=== PATIENT | female | born 1985 | race American Indian/Alaskan Native ===

== ENCOUNTER 2017-04-24 09:43 | Emergency (ER) | payer MEDICARE, MEDICAID, OTHER ==
[2017-04-24] MEDS ORDERED: Acetaminophen 500 MG Tab PO ONE (11:13)
--- NOTE | 2017-04-24 11:14 | EDM.PDOC ---
ED HPI GENERAL MEDICAL PROBLEM - General Chief Complaint: Lower Extremity Injury/Pain Stated Complaint: FELL AND INJURED LET LEG Time Seen by Provider: 04/24/17 11:12 Source of Information: Reports: Patient History Limitations: Reports: No Limitations - History of Present Illness INITIAL COMMENTS - FREE TEXT/NARRATIVE: Patient presents with left knee pain. She reports she tripped and fell at home, twisting her left knee. She reports pain with weight bearing. - Related Data Allergies Allergy/AdvReac Type Severity Reaction Status Date / Time codeine Allergy Airway Verified 04/24/17 11:04 Tightness indomethacin [From Indocin] Allergy Swelling Verified 04/24/17 11:04 indomethacin sodium Allergy Swelling Verified 04/24/17 11:04 [From Indocin] Penicillins Allergy Airway Verified 04/24/17 11:04 Tightness Sulfa (Sulfonamide Allergy Airway Verified 04/24/17 11:04 Antibiotics) Tightness Home Meds: Home Meds Albuterol Sulfate [Albuterol Sulfate HFA] PRN 08/07/13 [History] Past Medical History - Past Health History Medical/Surgical History: Denies Medical/Surgical History - Past Surgical History Musculoskeletal Surgical History: Reports: Other (See Below) Other Musculoskeletal Surgeries/Procedures:: left knee fracture Social & Family History - Tobacco Use Smoking Status *Q: Never Smoker Second Hand Smoke Exposure: No - Alcohol Use Days Per Week of Alcohol Use: 0 - Recreational Drug Use Recreational Drug Use: No Review of Systems - Review of Systems Review Of Systems: See Below Constitutional: Denies: Fever Respiratory: Reports: No Symptoms Cardiovascular: Reports: No Symptoms Musculoskeletal: Reports: Joint Pain, Joint Swelling, Muscle Pain, Muscle Stiffness, Other (Pain to left lateral knee with edema) Skin: Denies: Bruising, Rash, Erythema, Wound Neurological: Reports: No Symptoms Psychiatric: Reports: No Symptoms ED EXAM, GENERAL - Physical Exam Exam: See Below Exam Limited By: No Limitations General Appearance: Alert, WD/WN, Mild Distress Eye Exam: Bilateral Eye: EOMI, Normal Inspection, PERRL Ears: Normal External Exam Ear Exam: Left Ear: TM Perforation (small amount of yellow discharge, decreased hearing. ) Nose: Normal Inspection, Normal Mucosa, No Blood Throat/Mouth: Normal Inspection, Normal Lips, Normal Oropharynx, Normal Voice, No Airway Compromise Head: Atraumatic, Normocephalic Neck: Normal Inspection, Supple, Non-Tender, Full Range of Motion. No: Lymphadenopathy (R), Lymphadenopathy (L) Respiratory/Chest: No Respiratory Distress, Lungs Clear, Normal Breath Sounds, No Accessory Muscle Use, Chest Non-Tender Cardiovascular: Normal Peripheral Pulses, Regular Rate, Rhythm, No Edema, No Murmur, No Rub Peripheral Pulses: 2+: Radial (L), Radial (R), Dorsalis Pedis (L), Dorsalis Pedis (R) Back Exam: Normal Inspection, Full Range of Motion. No: CVA Tenderness (R), CVA Tenderness (L) Extremities: No Pedal Edema, Normal Capillary Refill, Other (Joint line tenderness left knee, Inability to squat or kneel, Palpable catching at the joint line as detected by the Rosanna maneuver, small effusion noted to lateral left knee. ) Neurological: Alert, Oriented, CN II-XII Intact, Normal Cognition, No Motor/ Sensory Deficits, Other (Gait favoring left knee, however this is due to recent fall. ) Psychiatric: Normal Affect, Normal Mood Skin Exam: Warm, Dry, Intact, Normal Color, No Rash Lymphatic: No Adenopathy Course - Vital Signs Last Recorded V/S: Last Vital Signs Temp 36.9 C 04/24/17 11:09 Pulse 71 04/24/17 11:09 Resp 14 04/24/17 11:09 BP 158/96 H 04/24/17 11:09 Pulse Ox 96 04/24/17 11:09 - Orders/Labs/Meds Orders: Active Orders 24 hr Category Date Time Status Knee 3V Lt [CR] Stat Exams 04/24/17 11:13 Taken Meds: Medications Discontinued Medications Generic Name Dose Route Start Last Admin Trade Name Bong PRN Reason Stop Dose Admin Acetaminophen 1,000 mg 04/24/17 11:13 04/24/17 11:18 Tylenol Extra Strength PO 04/24/17 11:14 1,000 mg ONETIME ONE Administration - Re-Assessments/Exams Free Text/Narrative Re-Assessment/Exam: 04/24/17 11:58 X-ray reviewed with patient, she most likely has 04/24/17 12:10 She will be treated for left knee injury, effusion with possible lateral meniscus tear. She will be fitted with a knee brace, bhavik wrap and crutches. Departure - Departure Time of Disposition: 12:11 Disposition: Home, Self-Care 01 Condition: Fair Clinical Impression: Left knee sprain, Otitis media of left ear, Acute otitis media of left ear with perforated tympanic membrane - Discharge Information Instructions: Knee Pain, Otitis Media, Adult, [id number], Knee Sprain, Easy- to-Read Referrals: PCP,None [Primary Care Provider] - Forms: ED Department Discharge Additional Instructions: You have suffered a left knee sprain with possible injury to your left meniscus. It is best for you to rest the left knee, bhavik wrap, ice and use brace with crutches as directed. Take acetaminophen as directed for pain. You may use tramadol 50mg tablet, one tablet twice per day for severe pain ( hard copy script written for #6), patient allergic to NSAIDs. Follow up with Dr. Anny Shannon this week for recheck. You also have a perforated left ear drum. Use ciprodex ear drops, 4 drops to left ear twice per day for 7 days. Establish care with a primary provider and have a recheck of your ear in 10 days. - My Orders Last 24 Hours: My Active Orders 04/24/17 11:13 Knee 3V Lt [CR] Stat - Assessment/Plan Last 24 Hours: My Active Orders 04/24/17 11:13 Knee 3V Lt [CR] Stat Assessment:: Left knee sprain Otitis media left Plan: Patient has suffered a left knee sprain with possible injury to your left meniscus. She also has left otitis media with perforated TM. It is best for her to rest the left knee, bhavik wrap, ice and use brace with crutches as directed. Take acetaminophen as directed for pain. She may use tramadol 50mg tablet, one tablet twice per day for severe pain ( hard copy script written for #6), patient allergic to NSAIDs. Follow up with Dr. Anny Shannon this week for recheck. She also have a perforated left ear drum with otitis media. Use ciprodex ear drops, 4 drops to left ear twice per day for 7 days. Establish care with a primary provider and have a recheck of left ear in 10 days.
--- NOTE | 2017-04-25 08:48 | CR ---
Left knee There is squaring of the articular surfaces. There is no evidence of fracture. The soft tissues are u nremarkable. Impression: 1. Moderate osteoarthritis. 2. No acute findings.
== END 2017-04-24 12:43 | disposition home or self-care (01) ==
LOC: JP.ED 09:43
DX: S83.92XA Sprain of unspecified site of left knee, initial encounter (principal); H66.92 Otitis media, unspecified, left ear; H72.92 Unspecified perforation of tympanic membrane, left ear; W19.XXXA Unspecified fall, initial encounter
CPT/HCPCS: 73562; 99284; A9270; 99283

== ENCOUNTER 2017-05-08 21:41 | Emergency (ER) | payer MEDICARE, MEDICAID ==
--- NOTE | 2017-05-08 22:34 | EDM.PDOC ---
ED HPI GENERAL MEDICAL PROBLEM - General Chief Complaint: Headache Stated Complaint: HEADACHE,DIZZINESS Time Seen by Provider: 05/08/17 21:55 Source of Information: Reports: Patient History Limitations: Reports: No Limitations - History of Present Illness INITIAL COMMENTS - FREE TEXT/NARRATIVE: Pt was being treated for a left sided ear infection. She was on a cephlosporin and she broke out from it. The antibiotic was stopped and she is just using the ear drops. Today she is having clear drainage from the left ear. She is also having a frontal headache. Onset: Today, Gradual Duration: Hour(s): Location: Reports: Face, Other ( Pain in the left ear. ) Associated Symptoms: Reports: No Other Symptoms Headache Pain Score (Numeric/FACES): 7 - Related Data Allergies Allergy/AdvReac Type Severity Reaction Status Date / Time codeine Allergy Airway Verified 04/24/17 11:04 Tightness indomethacin [From Indocin] Allergy Swelling Verified 04/24/17 11:04 indomethacin sodium Allergy Swelling Verified 04/24/17 11:04 [From Indocin] Penicillins Allergy Airway Verified 04/24/17 11:04 Tightness Sulfa (Sulfonamide Allergy Airway Verified 04/24/17 11:04 Antibiotics) Tightness Home Meds: Home Meds Albuterol Sulfate [Albuterol Sulfate HFA] PRN 08/07/13 [History] Past Medical History - Past Health History Medical/Surgical History: Denies Medical/Surgical History Respiratory History: Reports: Asthma Endocrine/Metabolic History: Reports: Diabetes, Type II - Past Surgical History Female Surgical History: Reports: Section Musculoskeletal Surgical History: Reports: Other (See Below) Other Musculoskeletal Surgeries/Procedures:: left knee fracture Social & Family History - Tobacco Use Smoking Status *Q: Never Smoker Second Hand Smoke Exposure: No - Caffeine Use Caffeine Use: Reports: Tea - Alcohol Use Days Per Week of Alcohol Use: 0 - Recreational Drug Use Recreational Drug Use: No ED ROS GENERAL - Review of Systems Review Of Systems: See Below Constitutional: Reports: No Symptoms, Other ( drainage from the left ear. ) HEENT: Reports: No Symptoms, Other (pt has much tenderness over the left maxillary sinus. Left ear has alot of purulent material in the left ear. ) Respiratory: Reports: No Symptoms Cardiovascular: Reports: No Symptoms Endocrine: Reports: No Symptoms GI/Abdominal: Reports: No Symptoms : Reports: No Symptoms Musculoskeletal: Reports: No Symptoms - Physical Exam Exam: See Below Text/Narrative:: pt has pain over the left maxillary sinus and has clear drainage from the left ear. She is using cipro drops. Exam Limited By: No Limitations General Appearance: Alert, Anxious, Mild Distress Ears: Other ( Left ear canal is inflamed and there is a fair amount of drainage from the left ear. ) Nose: Normal Inspection, Other (Pt has sig tenderness over the left maxillary sinus. ) Throat/Mouth: Normal Inspection Head Exam: Atraumatic Neck: Normal Inspection Respiratory/Chest: No Respiratory Distress Cardiovascular: Regular Rate, Rhythm, Tachycardia GI/Abdominal: Soft, Non-Tender Course - Vital Signs Last Recorded V/S: Last Vital Signs Temp 36.4 C 05/08/17 21:56 Pulse 90 05/08/17 21:56 Resp 16 05/08/17 21:56 BP 151/95 H 05/08/17 21:56 Pulse Ox 99 05/08/17 21:56 - Orders/Labs/Meds Orders: Active Orders 24 hr Category Date Time Status Sinus Less 3V [CR] Stat Exams 05/08/17 22:27 Taken Labs: Laboratory Tests 05/08/17 05/08/17 Range/Units 22:40 23:20 WBC 11.2 H (4.5-11.0) K/uL RBC 4.68 (3.30-5.50) M/uL Hgb 9.9 L (12.0-15.0) g/dL Hct 33.5 L (36.0-48.0) % MCV 72 L (80-98) fL MCH 21 L (27-31) pg MCHC 30 L (32-36) % Plt Count 580 H (150-400) K/uL Neut % (Auto) 54 (36-66) % Lymph % (Auto) 31 (24-44) % Amelia % (Auto) 7 H (2-6) % Eos % (Auto) 8 H (2-4) % Baso % (Auto) 0 (0-1) % Iron 17 L (50-170) ug/dL TIBC 390 (250-450) ug/dl % Saturation 4 L (20-55) % Meds: Medications Discontinued Medications Generic Name Dose Route Start Last Admin Trade Name Freq PRN Reason Stop Dose Admin Ketorolac Tromethamine 60 mg 05/08/17 23:13 05/08/17 23:32 Toradol IM 05/08/17 23:14 60 mg ONETIME ONE Administration - Re-Assessments/Exams Free Text/Narrative Re-Assessment/Exam: 05/08/17 23:43 pt was found to have a hg of 9. Her iron stores are very low. The cardenas view did not show air fluid levels present. She is very tender over the lef maxillary sinus/ Departure - Departure Time of Disposition: 23:45 Disposition: Home, Self-Care 01 Condition: Fair Clinical Impression: Otitis media, left, Left maxillary sinusitis, Iron deficiency anemia - Discharge Information Referrals: Donna Capone RN [Primary Care Provider] - Forms: ED Department Discharge Care Plan Goals: stop cipro drops. switch to corticosporin ear drops and use tid, cipro 500mg bid for sinusitis and anna media. Recheck on the ear and anemia with own physian. Multivit high in fe. motrin 600mg tid with food. - My Orders Last 24 Hours: My Active Orders 05/08/17 22:27 Sinus Less 3V [CR] Stat - Assessment/Plan Last 24 Hours: My Active Orders 05/08/17 22:27 Sinus Less 3V [CR] Stat
[2017-05-08] MEDS ORDERED: Ketorolac 60 MG/2 ML SDV IM ONE (23:13)
--- NOTE | 2017-05-09 08:19 | CR ---
Sinus Less 3V INDICATION: possible left maxillary sinus infection FINDINGS: Mild mucosal thickening inferior left maxillary sinus. Right maxillary, ethmoid, frontal, a nd sphenoid sinuses are clear.
== END 2017-05-08 23:58 | disposition home or self-care (01) ==
LOC: JP.ED 21:41
DX: H66.92 Otitis media, unspecified, left ear (principal); J32.0 Chronic maxillary sinusitis; D50.9 Iron deficiency anemia, unspecified; J45.909 Unspecified asthma, uncomplicated; E11.9 Type 2 diabetes mellitus without complications; Z88.0 Allergy status to penicillin; Z88.2 Allergy status to sulfonamides; Z88.5 Allergy status to narcotic agent; Z88.8 Allergy status to other drugs, medicaments and biological substances
CPT/HCPCS: 36415; 70210; 83550; 85025; 96372; 99284; J1885; 99283